=== PATIENT | male | born 1965 | race Caucasian/White ===

== ENCOUNTER 2018-10-01 11:15 | Emergency (ER) | payer BC, OTHER ==
[2018-10-01] MEDS ORDERED: LIDOCAINE 1% INJ-PF (10 MG/ML) 30 ML SDV INJ ONE (13:22)
--- NOTE | 2018-10-01 13:22 | ER Document Report ---
ED Wound - General Chief Complaint: Laceration Stated Complaint: LACERATION TO LEFT THUMB Time Seen by Provider: 10/01/18 13:18 Notes: 53-year-old male presents to the emergency department for a laceration on his left thumb from a gutter hanger blade. He said it was not operating but was wind up under pressure when he was trying to remove the bolt and the blade swung around and caught him and went through the middle of his thumbnail. Tetanus is not up-to-date. Denies fevers, chills, nausea, vomiting, diarrhea. No other complaints TRAVEL OUTSIDE OF THE [place] IN LAST 30 DAYS: No - Related Data Allergies/Adverse Reactions: No Known Allergies Allergy (Unverified 10/01/18 11:16) Past Medical History - Social History Smoking Status: Unknown if Ever Smoked Family History: None Physical Exam - Vital signs Vitals: Temp Pulse Resp BP Pulse Ox 98.1 F 80 18 159/84 H 97 10/01/18 11:20 10/01/18 11:20 10/01/18 11:20 10/01/18 11:20 10/01/18 11:20 - Notes Notes: PHYSICAL EXAMINATION: Reviewed vital signs and charting by RN GENERAL: Alert, interacts well. No acute distress. HEAD: Normocephalic, atraumatic. EYES: Pupils equal and round. Extraocular movements intact. ENT: Oral mucosa moist, tongue midline. EXTREMITIES: Moves all 4 extremities spontaneously. No edema, No cyanosis. Normal distal neurovascular exam BACK: No CVAT NEUROLOGIC: Oriented and appropriate. Normal speech. PSYCH: Normal affect, normal mood. SKIN: Warm, dry, normal turgor. Laceration on the left across the middle of the nail that extends medially across into the cuticle approximately 0.5 cm. Mild oozing. Course - Re-evaluation Re-evalutation: 10/01/18 13:21 Well-appearing. Will give tetanus booster. Will repair with one 5-0 suture and Steri-Strip over the nail. - Vital Signs Vital signs: Temp Pulse Resp BP Pulse Ox 98.1 F 80 18 159/84 H 97 10/01/18 11:20 10/01/18 11:20 10/01/18 11:20 10/01/18 11:20 10/01/18 11:20 Discharge - Discharge Clinical Impression: Laceration Condition: Good Disposition: HOME, SELF-CARE Instructions: Antibiotic Ointment Protection (OM), Laceration Care (OM), Soap Cleansing ([facility]) Additional Instructions: Please return to your primary doctor, the ED, or an urgent care in 7 days for suture removal. Return immediately if you develop spreading redness around the wound, pus from the wound, worsening pain, or a fever of >101. Keep the area clean and dry. Wash gently with soap and water twice daily and cover with antibiotic ointment.
[2018-10-01] MEDS ORDERED: DIPH/PERTUSS(ACELL)/TETANUS VAC/PF 0.5 ML SYR (>=10YO) IM ONE (13:23)
[2018-10-01 15:50] VITALS: BP 148/78
== END 2018-10-01 15:44 | disposition home or self-care (01) ==
LOC: ER 11:15
PROC: 0HQGXZZ Repair Left Hand Skin, External Approach (ICD-10-PCS; principal; 2018-10-01)
DX: S61.012A Laceration without foreign body of left thumb without damage to nail, initial encounter (principal); W28.XXXA Contact with powered lawn mower, initial encounter; Y93.H2 Activity, gardening and landscaping
CPT/HCPCS: 90471; 90715; 99282